=== PATIENT | male | born 1985 | race Caucasian/White ===

== ENCOUNTER 2020-06-01 06:40 | Emergency (ER) | payer OTHER ==
[~2020-06-01] VITALS: Ht 188 cm; Wt 122.5 kg
[2020-06-01] MEDS ORDERED: DUI500 PO (08:23)
== END 2020-06-01 08:30 | disposition home or self-care (01) ==
LOC: ER 06:40
DX: S41.121A Laceration with foreign body of right upper arm, initial encounter (principal); W26.8XXA Contact with other sharp object(s), not elsewhere classified, initial encounter; Y93.89 Activity, other specified; Y92.018 Other place in single-family (private) house as the place of occurrence of the external cause; Y99.8 Other external cause status

== ENCOUNTER → 2020-06-09 | Emergency (ER) | payer OTHER ==
[~2020-06-09] VITALS: Ht 188 cm; Wt 122.5 kg
[~2020-06-09] MED LIST: DUI500 PO
== END | disposition left against medical advice (07) ==
LOC: ER 19:18
DX: Z53.20 Procedure and treatment not carried out because of patient's decision for unspecified reasons (principal)